=== PATIENT | male | born 1985 | race American Indian/Alaskan Native ===

== ENCOUNTER 2022-06-06 12:53 | Emergency (ER) | payer SELFPAY ==
[2022-06-06 14:46] VITALS: BP 154/105
--- NOTE | 2022-06-06 15:45 | XRay Report ---
RIGHT HAND 3 VIEWS INDICATION / CLINICAL INFORMATION: Pain in right hand after fall on outstretched hand yesterday. COMPARISON: None available. FINDINGS: BONES and JOINT(S): No acute fracture or subluxation. No significant arthritis. SOFT TISSUES: Moderate edema is most notable dorsally and medially along the hand. ADDITIONAL FINDINGS: None. IMPRESSION: 1. Right hand edema without other acute findings. Signer Name: Zia Tong MD Signed: 06/06/2022 3:41 PM Workstation Name: [id number]
[2022-06-06] MEDS ORDERED: cephALEXin 500 MG CAP PO ONE (16:51)
[2022-06-06] MEDS ORDERED: KETOROLAC 10 MG TAB PO ONE (16:51)
[2022-06-06] MEDS ORDERED: predniSONE 20 MG TAB PO ONE (16:51)
--- NOTE | 2022-06-06 16:57 | Emergency Department Report ---
ED Extremity Problem HPI - General Chief complaint: Extremity Injury, Upper Stated complaint: RT HAND INJURY Time Seen by Provider: 06/06/22 16:50 Source: patient Mode of arrival: Ambulatory Limitations: No Limitations - History of Present Illness Initial comments: 36-year-old black male with no past medical history presents to the emergency department for evaluation of right hand pain and swelling. He states that he fell off his scooter 1 week ago, has been using ibuprofen and ice to the hand, but has had persistent pain and swelling to the hand. He denies loss of consciousness. He states that he also has 2 abrasions to the inside of his hand. He denies fever. 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 MD Complaint: extremity pain, extremity swelling -: Gradual, week(s) (1) Location: right History of Same: No -: No myalgia, No arthralgia, No fever, No associated dyspnea, No associated chest pain Severity scale (0 -10): 7 Quality: aching Consistency: constant Worsens with: other (Movement) Associated Symptoms: denies: chest pain, shortness of breath, fever, myalgias, arthralgias, rash - Related Data Previous Rx's Medication Instructions Recorded Last Taken Type Naproxen [Naprosyn] 500 mg PO BID 7 Days #14 tab 06/06/22 Unknown Rx cephALEXin [Keflex] 500 mg PO Q12HR 7 Days #14 cap 06/06/22 Unknown Rx Allergies Allergy/AdvReac Type Severity Reaction Status Date / Time No Known Allergies Allergy Verified 06/06/22 14:46 ED Review of Systems ROS: Stated complaint: RT HAND INJURY Other details as noted in HPI Comment: All other systems reviewed and negative Constitutional: denies: chills, fever Respiratory: denies: shortness of breath Cardiovascular: denies: chest pain, palpitations Gastrointestinal: denies: abdominal pain, nausea, vomiting Genitourinary: denies: urgency, dysuria Musculoskeletal: denies: back pain Neurological: denies: headache, weakness ED Past Medical Hx - Medications Home Medications: Home Medications Medication Instructions Recorded Confirmed Last Taken Type Naproxen [Naprosyn] 500 mg PO BID 7 Days #14 tab 06/06/22 Unknown Rx cephALEXin [Keflex] 500 mg PO Q12HR 7 Days #14 cap 06/06/22 Unknown Rx ED Physical Exam - General Limitations: No Limitations General appearance: alert, in no apparent distress - Head Head exam: Present: atraumatic, normocephalic - Eye Eye exam: Present: normal appearance. Absent: conjunctival injection - Neck Neck exam: Present: normal inspection - Respiratory Respiratory exam: Absent: respiratory distress - Cardiovascular Cardiovascular Exam: Present: regular rate - GI/Abdominal GI/Abdominal exam: Absent: distended, tenderness - Expanded Upper Extremity Exam Right Forearm Wrist exam: Present: normal inspection Hand Wrist exam: Present: tenderness, swelling, abrasion, erythema. Absent: full ROM, laceration, ecchymosis, deformity, crepidus, dislocation, amputation, nail avulsion, subungual hematoma Vascular: Present: normal capillary refill, radial pulse. Absent: vascular compromise, Pallo - Back Exam Back exam: Present: normal inspection - Neurological Exam Neurological exam: Present: alert, oriented X3, normal gait - Psychiatric Psychiatric exam: Present: normal affect, normal mood - Skin Skin exam: Present: warm, dry, intact, normal color ED Course Vital Signs 06/06/22 14:42 Temperature 98.3 F Respiratory 18 Rate Blood Pressure 154/105 [Right] O2 Sat by Pulse 98 Oximetry - Orthopedic Splinting/Casting Injury #1 Side: right Upper Extremity Injury Location: hand Upper Extremity Immobilizer: Armani wrap ED Medical Decision Making - Radiology Data Radiology results: report reviewed, image reviewed Right hand x-ray: FINDINGS: BONES and JOINT(S): No acute fracture or subluxation. No significant arthritis. SOFT TISSUES: Moderate edema is most notable dorsally and medially along the hand. ADDITIONAL FINDINGS: None. IMPRESSION: 1. Right hand edema without other acute findings. - Medical Decision Making 36-year-old black male with no past medical history presents to the emergency department for evaluation of right hand pain and swelling. He states that he fell off his scooter 1 week ago, has been using ibuprofen and ice to the hand, but has had persistent pain and swelling to the hand. He denies loss of consciousness. He states that he also has 2 abrasions to the inside of his burroughs d. He denies fever. 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 Right hand x-ray without any acute abnormalities noted. Right hand noted to be swollen and warm to touch. Patient noted to have abrasion to the inside of hand but no drainage noted. Given patient's profession relies heavily on his hands, patient will be treated with 7-day course of Keflex along with 7 days of naproxen with Armani wrap placed and advised to follow-up orthopedics if no improvement or worsening symptoms. He is advised to return to the emergency department as needed. He verbalizes understanding of and agreement with plan of care. Critical care attestation.: If time is entered above; I have spent that time in minutes in the direct care of this critically ill patient, excluding procedure time. ED Disposition Clinical Impression: Swelling of right hand, Right hand pain Disposition: 01 HOME / SELF CARE / HOMELESS Is pt being admited?: No Does the pt Need Aspirin: No Condition: Stable Instructions: Hand Exercises, Hand Pain Additional Instructions: Take medications as prescribed. If no improvement or if symptoms do not resolve, follow-up with orthopedics for further evaluation and management. Return to the emergency department as needed. Prescriptions: cephALEXin [Keflex] 500 mg PO Q12HR 7 Days #14 cap Naproxen [Naprosyn] 500 mg PO BID 7 Days #14 tab Referrals: CALIN CORTÉS MD [Referring] - 3-5 Days Time of Disposition: 16:57
== END 2022-06-06 17:36 | disposition home or self-care (01) ==
LOC: ED 12:53
DX: M79.641 Pain in right hand (principal); Z79.899 Other long term (current) drug therapy; W18.39XA Other fall on same level, initial encounter; Y93.89 Activity, other specified; Y92.89 Other specified places as the place of occurrence of the external cause; Y99.8 Other external cause status
CPT/HCPCS: 99283